=== PATIENT | female | born 1965 | race Caucasian/White ===

== ENCOUNTER 2018-03-15 06:01 | Emergency (ER) | payer MEDICAID ==
[~2018-03-15] VITALS: Ht 175.3 cm; Wt 63.5 kg
--- NOTE | 2018-03-15 07:20 | NUR ---
Patient is awake and alert. Labs drawn, ultrasound in process.....
[2018-03-15 07:37] LABS: BASOPHILS % (AUTO) 0.9 % (0.0-2.0); EOSINOPHILS # (AUTO) 0.1 K/uL (0.0-0.7); EOSINOPHILS % (AUTO) 2.4 % (0.0-7.0); HEMATOCRIT 36.3 % (31.2-41.9); HEMOGLOBIN 12.2 g/dL (10.9-14.3); LYMPHOCYTES # (AUTO) 1.5 K/uL (20.0-40.0); LYMPHOCYTES % (AUTO) 39.2 % (20.5-51.5); MEAN CORPUSCULAR HEMOGLOBIN 29.1 uug (24.7-32.8); MEAN CORPUSCULAR HGB CONC 34 g/dL (32.3-35.6); MEAN CORPUSCULAR VOLUME 86.6 fL (75.5-95.3); MONOCYTES # (AUTO) 0.3 K/uL (2.0-10.0); MONOCYTES % (AUTO) 8.5 % (0.0-11.0); NEUTROPHILS # (AUTO) 1.9 K/uL (1.8-8.9); PLATELET COUNT (AUTO) 286 K/uL (179-408); RED BLOOD CELL COUNT(AUTO) 4.19 MIL/uL (3.63-4.92); WHITE BLOOD COUNT (AUTO) 3.8 K/uL (3.8-11.8)
[2018-03-15 07:45] LABS: CREATININE 0.8 mg/dL (0.6-1.3); POTASSIUM 3.6 mmol/L (3.5-5.1)
[2018-03-15 07:51] LABS: BILIRUBIN,DIRECT 0.1 mg/dL (0.0-0.2); BILIRUBIN,TOTAL 0.2 mg/dL (0.2-1.0); TOTAL PROTEIN, SERUM 7.3 g/dL (6.4-8.2)
--- NOTE | 2018-03-15 08:08 | NUR ---
Patient is sitting up watching TV in no distress. Awaiting test results.
--- NOTE | 2018-03-15 08:22 | NUR ---
DC, RX AND FOLLOW UP INSTRUCTIONS GIVEN AND EXPLAINED TO PATIENT WHO STATES HE UNDERSTANDS ALL INSTRUCTIONS. COPIES OF ALL TEST RESULTS HANDED TO PATIENT.
[2018-03-15 08:23] VITALS: BP 119/79
== END 2018-03-15 08:24 | disposition home or self-care (01) ==
LOC: ER 06:13
DX: S92.345A Nondisplaced fracture of fourth metatarsal bone, left foot, initial encounter for closed fracture (principal); L52 Erythema nodosum; G62.9 Polyneuropathy, unspecified; Z87.891 Personal history of nicotine dependence; Z59.0 Homelessness; W18.40XA Slipping, tripping and stumbling without falling, unspecified, initial encounter; Y93.89 Activity, other specified; Y92.89 Other specified places as the place of occurrence of the external cause; Y99.8 Other external cause status
CPT/HCPCS: 36415; 73630; 80048; 80076; 83605; 84484; 85025; 85651; 85730; 86140; 87040 ×2; 93970; 99285; A4663; 70030-TC

== ENCOUNTER 2021-07-02 19:57 | Emergency (ER) | payer MEDICAID ==
[~2021-07-02] VITALS: Ht 172.7 cm; Wt 65.8 kg
--- NOTE | 2021-07-02 20:15 | NUR ---
NO BEDS AVAILABLE IN THE ER AT THIS TIME. PLACED PATIENT Back to waiting room to wait for bed opening.
--- NOTE | 2021-07-02 20:30 | NUR ---
PATIENT ELECTED NOT TO BE SEEN AT THIS TIME. PATIENT LEFT WITHOUT BEING SEEN BY ERMD.
== END 2021-07-02 20:20 | disposition left against medical advice (07) ==
LOC: ER 20:03
DX: Z53.21 Procedure and treatment not carried out due to patient leaving prior to being seen by health care provider (principal)